=== PATIENT | female | born 1955 | race Caucasian/White ===

== ENCOUNTER → 2016-12-26 | Outpatient (CLI) | payer OTHER | LOC: ULTRA 08:27 | DX: I73.9 Peripheral vascular disease, unspecified (principal); I77.1 Stricture of artery; M79.605 Pain in left leg; M79.604 Pain in right leg ==

== ENCOUNTER → 2017-05-11 | Outpatient (CLI) | payer OTHER ==
[~2017-05-11] MED LIST: ASPIR 8181 MG PO; AVAPRO 150 MG150 M1 PO; NORVASC2.5 MG PO; PLAVIX 75 MG TA75 M1 PO; PROGESTERONE200 MG PO; SIMVASTATIN40 MG PO
== END ==
LOC: ULTRA 04-27 11:43
DX: I73.9 Peripheral vascular disease, unspecified (principal); I70.8 Atherosclerosis of other arteries

== ENCOUNTER → 2017-05-23 | Outpatient (CLI) | payer OTHER | END | disposition home or self-care (01) | LOC: SPEC 06:52 | DX: I70.218 Atherosclerosis of native arteries of extremities with intermittent claudication, other extremity (principal); I25.10 Atherosclerotic heart disease of native coronary artery without angina pectoris ==

== ENCOUNTER → 2017-08-28 | Outpatient (CLI) | payer OTHER | LOC: ULTRA 06:30 | DX: I73.9 Peripheral vascular disease, unspecified (principal); I70.8 Atherosclerosis of other arteries ==

== ENCOUNTER → 2018-04-27 | Outpatient (CLI) | payer OTHER | LOC: ULTRA 14:03 | DX: I73.9 Peripheral vascular disease, unspecified (principal) ==

== ENCOUNTER → 2018-10-31 | Outpatient (CLI) | payer OTHER | LOC: ULTRA 09:24 | DX: I65.23 Occlusion and stenosis of bilateral carotid arteries (principal); I70.203 Unspecified atherosclerosis of native arteries of extremities, bilateral legs; I77.9 Disorder of arteries and arterioles, unspecified ==

== ENCOUNTER 2018-11-05 11:08 | Outpatient (CLI) | payer OTHER ==
[2018-11-05] VITALS (14 sets, daily range): BP systolic 128–165; BP diastolic 55–74
[~2018-11-05] VITALS: Ht 165.1 cm; Wt 81.6 kg
[2018-11-05 12:01] LABS: HEMATOCRIT 38.7 % (37.0-47.0); HEMOGLOBIN 13.3 gm/dL (12.0-15.0); MCH 31.2 pg (26.0-34.0); MCHC 34.4 g/dL (28.0-37.0); MCV 90.7 fL (80.0-100.0); RBC 4.26 mil/uL (4.20-5.00); RDW 13.9 % (10.5-14.5); WBC 8.2 thou/uL (4.0-11.0)
[2018-11-05 12:08] LABS: CALCIUM 8.8 mg/dL (8.5-10.1); CREATININE 0.8 mg/dL (0.6-1.0); POTASSIUM 4.2 mmol/L (3.5-5.1)
--- NOTE | 2018-11-05 17:00 | NUR ---
PT POST OPERATIVE PROCEDURE PER DR. DARLING. PT SLEEPY AND DROWSY. FAMILY AT BEDSIDE FOR SUPPORT. PLAN OF CARE AND TEACHING DONE WITH PT FOR OBSERVATION STAY DENIES ANY PAIN AT THIS TIME. GROIN SITE ON RIGHT SIDE IS DRY AND INTACT NO BLEEDING NOTED. VITALS STABLE. CALL LIGHT WITHIN REACH IF NEEDS ASSISTANCE. LYING FLAT POST OPERATIVE ORDERS. WILL CONTINUE TO ASSESS AND MONITOR PER NURSING
--- NOTE | 2018-11-05 22:26 | NUR ---
ASSUMED PT CARE AROUND 1899. PT DENIED ANY PAIN. PT WAS ON BEDREST UNTIL 2099. RT GROIN SITE C/D/I WITH NO DRAINAGE OR HEMATOMA NOTED. VSS. AFTER 2099, PT AMBULATED TO BATHROOM WITHOUT DIFFICULTY. DRESSING REMAINED INTACT. IV REMOVED. DISCHARGE INSTRUCTIONS AND CLOSURE DEVICE INFORMATION GIVEN TO PATIENT. DISCHARGE INSTRUCTION SHEET SIGNED BY PT AND NURSE. ALL QUESTIONS ANSWERED. PT LEFT UNIT VIA WHEELCHAIR AT 2139. ALL BELONGINGS SENT WITH PT.
== END 2018-11-05 21:40 | disposition home or self-care (01) ==
LOC: SPEC 11:08 → 4W 17:41 → SPEC 21:40
PROVIDERS: Nuclear Medicine Nuclear Cardiology
DX: I70.213 Atherosclerosis of native arteries of extremities with intermittent claudication, bilateral legs (principal); I70.1 Atherosclerosis of renal artery; I10 Essential (primary) hypertension; E78.5 Hyperlipidemia, unspecified; E78.00 Pure hypercholesterolemia, unspecified; Z87.891 Personal history of nicotine dependence; Z98.890 Other specified postprocedural states; Z79.899 Other long term (current) drug therapy; Z88.8 Allergy status to other drugs, medicaments and biological substances; Z79.82 Long term (current) use of aspirin
CPT/HCPCS: 10047

== ENCOUNTER → 2018-11-26 | Outpatient (CLI) | payer OTHER ==
[~2018-11-26] VITALS: Ht 165.1 cm; Wt 81.6 kg
[2018-11-26 09:17] VITALS: BP 169/67
== END | disposition home or self-care (01) ==
LOC: SPEC 07:49
DX: I70.211 Atherosclerosis of native arteries of extremities with intermittent claudication, right leg (principal); I70.1 Atherosclerosis of renal artery; I10 Essential (primary) hypertension; I25.10 Atherosclerotic heart disease of native coronary artery without angina pectoris; E78.00 Pure hypercholesterolemia, unspecified; E78.5 Hyperlipidemia, unspecified; Z87.891 Personal history of nicotine dependence; Z98.890 Other specified postprocedural states; Z79.899 Other long term (current) drug therapy; Z88.8 Allergy status to other drugs, medicaments and biological substances; Z79.82 Long term (current) use of aspirin